=== PATIENT | female | born 1995 | race African-American/Black ===

== ENCOUNTER 2018-07-07 16:45 | Inpatient (IN) | payer MEDICAID, OTHER ==
[~2018-07-07] VITALS: Ht 180.3 cm; Wt 108.9 kg
[2018-07-07] MEDS ORDERED: ONDANSETRON HCL 4MG/2ML INJ ONE (17:32)
[2018-07-07] MEDS ORDERED: PHENYLEPHRINE HCL 10 MG/ML 1ML (IV VIAL) IV ONE (17:32)
[2018-07-07] MEDS ORDERED: EPHEDRINE SULFATE 50MG/ML VIAL ONE (17:32)
[2018-07-07] MEDS ORDERED: MORPHINE SULFATE/PF 1MG/ML 10ML AMP ONE (17:32)
[2018-07-07] MEDS ORDERED: FENTANYL CITRATE/PF 50MCG/ML 2ML VIAL ONE (17:32)
[2018-07-07] MEDS ORDERED: GLYCOPYRROLATE 0.2 MG/ML 2ML VIAL ONE (17:32)
[2018-07-07] MEDS ORDERED: OXYTOCIN 10 UNITS/ML 1ML ONE (17:32)
[2018-07-07] MEDS ORDERED: BUPIVACAINE HCL/DEXTROSE/PF 0.75% 2ML AMP INJ ONE (17:33)
[2018-07-07] MEDS ORDERED: SODIUM CHLORIDE 0.9% 10ML VIAL ONE ×2 (17:36→18:27)
[2018-07-07] MEDS ORDERED: LACTATED RINGERS 1,000 ML IV SCH (17:38)
[2018-07-07] MEDS ORDERED: DEXT 5%/LR + PITOCIN 20UNITS/L 1,000 ML IV SCH ×2 (17:38→19:20)
[2018-07-07 17:56] LABS: CLARITY URINE CLEAR (CLEAR); COLOR URINE YELLOW (YELLOW); KETONES URINE NEGATIVE (NEGATIVE); LEUKOCYTE ESTERASE URINE NEGATIVE (NEGATIVE); NITRITE URINE NEGATIVE (NEGATIVE); OCCULT BLOOD URINE NEGATIVE (NEGATIVE); PH URINE 6.5 (4.5-8.0); PROTEIN URINE NEGATIVE (NEGATIVE); SPECIFIC GRAVITY URINE 1.018 (1.005-1.030); UROBILINOGEN URINE 0.2 E.U./dL (0.2-1.0)
[2018-07-07 18:04] LABS: INR 0.9; PARTIAL THROMBOPLASTIN TIME 25.4 sec (23.4-31.0); PROTHROMBIN TIME 9.3 sec (9.1-11.1)
[2018-07-07 18:07] LABS: BASOPHILS % 0.6 % (0.0-2.0); HEMATOCRIT. 38.6 % (36.0-48.0); HEMOGLOBIN. 13.2 g/dL (12.0-16.0); MEAN CORPUSCULAR HEMOGLOBIN 34.7 pg (28.0-32.0); MEAN CORPUSCULAR VOLUME 101.9 fL (81.0-99.0); MEAN PLATELET VOLUME 8.9 fl (7.4-10.4); MONOCYTES % 8.8 % (2.0-8.0); NEUTROPHILS % 65.6 % (40.0-76.0); PLATELET 237 x1000/uL (130-400); RED BLOOD CELL COUNT 3.79 mill/uL (4.2-5.4); RED CELL DISTRIBUTION WIDTH 13.8 % (11.6-14.6)
[2018-07-07 18:22] LABS: *AMPHETAMINES SCREEN URINE NEGATIVE (NEGATIVE); *BARBITURATES SCREEN URINE NEGATIVE (NEGATIVE); *BENZODIAZEPINES SCREEN URINE NEGATIVE (NEGATIVE); *COCAINE SCREEN URINE NEGATIVE (NEGATIVE)
[2018-07-07 18:23] LABS: CANNABINOID URINE SCREEN NEGATIVE (NEGATIVE); METHADONE URINE SCREEN NEGATIVE (NEGATIVE); OPIATES URINE SCREEN NEGATIVE (NEGATIVE); PHENCYCLIDINE URINE SCREEN NEGATIVE (NEGATIVE)
[2018-07-07] MEDS ORDERED: CEFAZOLIN SODIUM 1000MG/VIAL ONE (18:27)
[2018-07-07] MEDS ORDERED: CITRIC ACID/SODIUM CITRATE SOLN 30ML UDC PO ONE (18:30)
[2018-07-07 18:36] LABS: HEPATITIS B SURFACE ANTIGEN NEGATIVE
[2018-07-07] MEDS ORDERED: KETOROLAC 60MG/2ML VIAL IM ONE (19:08)
[2018-07-07] MEDS ORDERED: MIDAZOLAM HCL 2 MG/2 ML VIAL ONE (19:10)
[2018-07-07] MEDS ORDERED: HYDROMORPHONE HCL/PF 2MG/ML CPJ IM PRN (19:30)
[2018-07-07] MEDS ORDERED: RHO(D) IMMUNE GLOBULIN 300 MCG/SYR IM PRN (19:30)
[2018-07-07] MEDS ORDERED: BISACODYL 10MG SUPP PR PRN (19:30)
[2018-07-07] MEDS ORDERED: IBUPROFEN 400MG TABLET PO PRN (19:30)
[2018-07-07] MEDS ORDERED: KETOROLAC 30MG/ML VIAL IV PRN (19:45)
[2018-07-07] MEDS ORDERED: BUTORPHANOL TARTRATE 2 MG/ML VIAL IV PRN (19:45)
[2018-07-07] MEDS ORDERED: NALOXONE HCL 0.4 MG/ML 1ML VIAL IV PRN (19:45)
[2018-07-07] MEDS ORDERED: DIPHENHYDRAMINE 50MG/ML VIAL IV PRN (19:45)
[2018-07-07 21:40] VITALS: BP 119/75
[2018-07-07 22:00] VITALS: BP 120/80
[2018-07-07 22:30] VITALS: BP 118/72
[2018-07-08] VITALS: BP 122/86
[2018-07-08 04:00] VITALS: BP 125/80
[2018-07-08 07:10] LABS: BASOPHILS % 0.7 % (0.0-2.0); EOSINOPHILS % 0.1 % (0.0-5.0); HEMATOCRIT. 34.8 % (36.0-48.0); HEMOGLOBIN. 11.7 g/dL (12.0-16.0); LYMPHOCYTES % 7.4 % (20.0-50.0); MEAN CORPUSCULAR HEMOGLOBIN 33.8 pg (28.0-32.0); MEAN CORPUSCULAR VOLUME 100.9 fL (81.0-99.0); MEAN PLATELET VOLUME 8.8 fl (7.4-10.4); MONOCYTES % 5.9 % (2.0-8.0); NEUTROPHILS % 85.9 % (40.0-76.0); PLATELET 221 x1000/uL (130-400); RED BLOOD CELL COUNT 3.45 mill/uL (4.2-5.4); RED CELL DISTRIBUTION WIDTH 13.9 % (11.6-14.6)
[2018-07-08 08:00] VITALS: BP 119/67
[2018-07-08] MEDS: IBUPROFEN 800MG TABLET PO PRN (14:32)
[2018-07-08 18:04] VITALS: BP 109/54
[2018-07-08 20:00] VITALS: BP 115/64
[2018-07-08] MEDS: ACETAMINOPHEN WITH CODEINE 300/30MG TABLET PO PRN (21:35)
[2018-07-09] MEDS: IBUPROFEN 800MG TABLET PO PRN ×3 (01:56→17:14)
[2018-07-09 04:30] VITALS: BP 125/65
[2018-07-09 08:30] VITALS: BP 123/65
[2018-07-09 16:07] VITALS: BP 124/60
[2018-07-09] MEDS ORDERED: LANOLIN OINT 0.25 GM TUBE TOP NR (17:30)
[2018-07-09] MEDS: ACETAMINOPHEN WITH CODEINE 300/30MG TABLET PO PRN (20:13)
[2018-07-09 22:00] VITALS: BP 130/74
[2018-07-10] MEDS: IBUPROFEN 800MG TABLET PO PRN ×2 (03:43→09:48)
[2018-07-10 08:00] VITALS: BP 110/66
[2018-07-10] MEDS ORDERED: LANOLIN OINT 0.25 GM TUBE TOP PRN (09:00)
== END 2018-07-10 13:45 | disposition home or self-care (01) | DRG 540 ==
LOC: OBSVTOIN 16:45 → 8 EST LDRP 16:45 → 8EST 21:40
PROVIDERS: ADMIT Obstetrics & Gynecology; ATTEND Obstetrics & Gynecology
PROC: 10D00Z1 Extraction of Products of Conception, Low, Open Approach (ICD-10-PCS; principal; 2018-07-07)
PROC: 30233N1 Transfusion of Nonautologous Red Blood Cells into Peripheral Vein, Percutaneous Approach (ICD-10-PCS; 2018-07-07)
DX: O34.211 Maternal care for low transverse scar from previous cesarean delivery (principal); Z37.0 Single live birth; Z3A.39 39 weeks gestation of pregnancy; Z82.49 Family history of ischemic heart disease and other diseases of the circulatory system; Z82.5 Family history of asthma and other chronic lower respiratory diseases; Z83.3 Family history of diabetes mellitus
CPT/HCPCS: 36415; 80305; 86592; 86703; 86762; 86850; 86900; 86920; 87340; 88307; 99281; G0378; J0690; J1200; J1885; J2250; J2274; J2370; J2405; J2590; J3010; J3490; A4315

== ENCOUNTER 2021-05-25 21:08 | Inpatient (IN) | payer MEDICAID, OTHER ==
[~2021-05-25] VITALS: Ht 180.3 cm; Wt 103.4 kg
[2021-05-25] MEDS ORDERED: LACTATED RINGERS 1,000 ML IV SCH (22:45)
[2021-05-25 23:17] LABS: CLARITY URINE CLOUDY (CLEAR); COLOR URINE YELLOW (YELLOW); KETONES URINE 4+ (NEGATIVE); LEUKOCYTE ESTERASE URINE NEGATIVE (NEGATIVE); NITRITE URINE NEGATIVE (NEGATIVE); OCCULT BLOOD URINE NEGATIVE (NEGATIVE); PH URINE 6.5 (4.5-8.0); PROTEIN URINE TRACE (NEGATIVE); SPECIFIC GRAVITY URINE 1.028 (1.005-1.030)
[2021-05-25 23:20] LABS: CHLORIDE 105 mEq/L (98-107)
[2021-05-25 23:26] LABS: HEMATOCRIT 32.3 % (36.0-48.0); HEMOGLOBIN 11.4 g/dL (12.0-16.0); MEAN CORPUSCULAR HEMOGLOBIN 34.2 pg (28.0-32.0); MEAN CORPUSCULAR VOLUME 97.4 fL (81.0-99.0); PLATELET 208 x1000/uL (130-400); RED BLOOD CELL COUNT 3.32 mill/uL (4.2-5.4); RED CELL DISTRIBUTION WIDTH 13.1 % (11.6-14.6)
[2021-05-25 23:58] LABS: HEMATOCRIT. 31.9 % (36.0-48.0); HEMOGLOBIN. 11.3 g/dL (12.0-16.0); MEAN CORPUSCULAR HEMOGLOBIN 34.7 pg (28.0-32.0); MEAN CORPUSCULAR VOLUME 98.2 fL (81.0-99.0); MEAN PLATELET VOLUME 8.5 fl (7.4-10.4); PLATELET 211 x1000/uL (130-400); RED BLOOD CELL COUNT 3.25 mill/uL (4.2-5.4); RED CELL DISTRIBUTION WIDTH 12.8 % (11.6-14.6)
[2021-05-26] MEDS ORDERED: CEFAZOLIN 2,000 MG in DEXT 5% WATER 100 ML IV NR (00:30)
[2021-05-26] MEDS ORDERED: ONDANSETRON HCL 4MG/2ML INJ ONE (00:36)
[2021-05-26] MEDS ORDERED: CEFAZOLIN SODIUM 1000MG/VIAL ONE (00:49)
[2021-05-26] MEDS: ONDANSETRON HCL 4MG/2ML INJ IV SCH ×4 (01:13→17:28)
[2021-05-26] MEDS: ACETAMINOPHEN 325MG TABLET PO PRN ×3 (01:16→17:34)
[2021-05-26] MEDS: LACTATED RINGERS 1,000 ML IV SCH ×3 (01:18→17:00)
[2021-05-26 01:55] VITALS: BP 125/73
[2021-05-26 04:00] VITALS: BP 121/74
[2021-05-26 05:33] LABS: PLATELET ESTIMATE NORMAL
[2021-05-26] MEDS: CEFTRIAXONE 1,000 MG in DEXTROSE 5% WATER 50 ML IV SCH (06:19)
[2021-05-26 08:00] VITALS: BP 109/53
[2021-05-26] MEDS ORDERED: FOLI0.4T6 MT (09:10)
[2021-05-26] MEDS ORDERED: PNV1TABL76 PO (09:10)
[2021-05-26] MEDS: DEXAMETHASONE 10 MG/ML VIAL IV SCH (09:34)
[2021-05-26 12:00] VITALS: BP 116/80
[2021-05-26 15:55] VITALS: BP 127/86
[2021-05-26 20:00] VITALS: BP 128/61
[2021-05-27] VITALS: BP 107/54
[2021-05-27] MEDS: ONDANSETRON HCL 4MG/2ML INJ IV SCH ×4 (00:30→18:27)
[2021-05-27 04:00] VITALS: BP 105/49
[2021-05-27 08:00] VITALS: BP 112/63
[2021-05-27] MEDS: DEXAMETHASONE 10 MG/ML VIAL IV SCH (09:11)
[2021-05-27] MEDS: CEFTRIAXONE 1,000 MG in DEXTROSE 5% WATER 50 ML IV SCH (09:11)
[2021-05-27] MEDS: LACTATED RINGERS 1,000 ML IV SCH (11:19)
[2021-05-27 12:00] VITALS: BP 121/67
[2021-05-27 16:00] VITALS: BP 95/54
[2021-05-27] MEDS ORDERED: DEXTROSE 50% WATER 50ML SYRINGE IV PRN (18:30)
[2021-05-27 20:00] VITALS: BP 137/78
[2021-05-27] MEDS: BLOOD SUGAR DIAGNOSTIC STRIP TEST SCH (20:08)
[2021-05-27] MEDS: INSULIN LISPRO 100 UNITS/ML SUBCUT SCH (20:08)
[2021-05-28 00:05] VITALS: BP 104/61
[2021-05-28] MEDS: ONDANSETRON HCL 4MG/2ML INJ IV SCH ×2 (00:30→05:22)
[2021-05-28 04:00] VITALS: BP 108/65
[2021-05-28] MEDS: INSULIN LISPRO 100 UNITS/ML SUBCUT SCH (05:21)
[2021-05-28] MEDS: BLOOD SUGAR DIAGNOSTIC STRIP TEST SCH (05:21)
[2021-05-28 08:00] VITALS: BP 123/63
[2021-05-28 08:02] LABS: *AMPHETAMINES SCREEN URINE NEGATIVE (NEGATIVE); *BARBITURATES SCREEN URINE NEGATIVE (NEGATIVE); *BENZODIAZEPINES SCREEN URINE NEGATIVE (NEGATIVE)
[2021-05-28 08:03] LABS: *COCAINE SCREEN URINE NEGATIVE (NEGATIVE); METHADONE URINE SCREEN NEGATIVE (NEGATIVE)
[2021-05-28 08:04] LABS: OPIATES URINE SCREEN NEGATIVE (NEGATIVE); PHENCYCLIDINE URINE SCREEN NEGATIVE (NEGATIVE)
[2021-05-28 08:11] LABS: CANNABINOID URINE SCREEN PRESUMTIVE POSITIVE (NEGATIVE)
[2021-05-28 08:12] VITALS: BP 123/63
== END 2021-05-28 09:10 | disposition home or self-care (01) | DRG 566 ==
LOC: 8 EST LDRP 21:08 → OBSVTOIN 21:08 → 7WST 05-26 02:01
PROVIDERS: ADMIT Internal Medicine; ATTEND Internal Medicine
DX: O98.512 Other viral diseases complicating pregnancy, second trimester (principal); U07.1 COVID-19; E43 Unspecified severe protein-calorie malnutrition; E88.09 Other disorders of plasma-protein metabolism, not elsewhere classified; O25.12 Malnutrition in pregnancy, second trimester; O99.012 Anemia complicating pregnancy, second trimester; O99.282 Endocrine, nutritional and metabolic diseases complicating pregnancy, second trimester; Z3A.24 24 weeks gestation of pregnancy; Z79.899 Other long term (current) drug therapy; R82.81 Pyuria
CPT/HCPCS: 36415; 71045; 76805; 80053; 80305; 81003; 82728; 82962; 83036; 83615; 84145; 85025; 85027; 86140; 87426; 93970; 96360; 96361; 99281; G0378; J0690; J0696; J1100; J2405; J7040; J7060; J7120

== ENCOUNTER 2021-09-12 13:56 | Inpatient (IN) | payer OTHER ==
[~2021-09-12] VITALS: Ht 180.3 cm; Wt 113.4 kg
[~2021-09-12 13:56] MED LIST: FOLI0.4T6 MT; PNV1TABL76 PO
[2021-09-12] MEDS ORDERED: METHYLERGONOVINE MALEATE 0.2 MG/ML IM PRN ×2 (16:30→16:45)
[2021-09-12] MEDS ORDERED: DEXT 5%/LR + PITOCIN 20UNITS/L 1,000 ML IV SCH ×2 (16:30→16:45)
[2021-09-12] MEDS ORDERED: NALOXONE HCL 0.4 MG/ML 1ML VIAL IM PRN ×2 (16:30→16:45)
[2021-09-12] MEDS ORDERED: MISOPROSTOL 100MCG TABLET RC SCH (16:45)
[2021-09-12] MEDS ORDERED: LACTATED RINGERS 1,000 ML IV SCH (16:45)
[2021-09-12] MEDS ORDERED: AMPICILLIN 2GM in NS 100ML 100 ML IV SCH (16:46)
[2021-09-12] MEDS: LACTATED RINGERS 1,000 ML IV SCH ×2 (17:17→23:04)
[2021-09-12 18:22] LABS: CLARITY URINE CLEAR (CLEAR); COLOR URINE YELLOW (YELLOW); KETONES URINE 1+ (NEGATIVE); LEUKOCYTE ESTERASE URINE NEGATIVE (NEGATIVE); NITRITE URINE NEGATIVE (NEGATIVE); OCCULT BLOOD URINE NEGATIVE (NEGATIVE); PH URINE 6.5 (4.5-8.0); PROTEIN URINE NEGATIVE (NEGATIVE); SPECIFIC GRAVITY URINE 1.024 (1.005-1.030)
[2021-09-12 18:29] LABS: BASOPHILS % 0.9 % (0.0-2.0); EOSINOPHILS % 1.5 % (0.0-5.0); HEMATOCRIT. 36.1 % (36.0-48.0); HEMOGLOBIN. 12.2 g/dL (12.0-16.0); LYMPHOCYTES % 21.5 % (20.0-50.0); MEAN CORPUSCULAR HEMOGLOBIN 32.4 pg (28.0-32.0); MEAN CORPUSCULAR VOLUME 96.3 fL (81.0-99.0); MEAN PLATELET VOLUME 8.6 fl (7.4-10.4); MONOCYTES % 7.2 % (2.0-8.0); NEUTROPHILS % 68.9 % (40.0-76.0); PLATELET 185 x1000/uL (130-400); RED BLOOD CELL COUNT 3.75 mill/uL (4.2-5.4); RED CELL DISTRIBUTION WIDTH 13.8 % (11.6-14.6)
[2021-09-12 18:31] LABS: *AMPHETAMINES SCREEN URINE NEGATIVE (NEGATIVE)
[2021-09-12 18:32] LABS: *BARBITURATES SCREEN URINE NEGATIVE (NEGATIVE); *BENZODIAZEPINES SCREEN URINE NEGATIVE (NEGATIVE); *COCAINE SCREEN URINE NEGATIVE (NEGATIVE); METHADONE URINE SCREEN NEGATIVE (NEGATIVE); OPIATES URINE SCREEN NEGATIVE (NEGATIVE); PHENCYCLIDINE URINE SCREEN NEGATIVE (NEGATIVE)
[2021-09-12 18:33] LABS: CANNABINOID URINE SCREEN NEGATIVE (NEGATIVE)
[2021-09-12 19:14] LABS: INR 0.9; PARTIAL THROMBOPLASTIN TIME 26.3 sec (23.4-31.0); PROTHROMBIN TIME 10.1 sec (9.6-11.0)
[2021-09-12 19:46] LABS: HEPATITIS B SURFACE ANTIGEN NEGATIVE
[2021-09-12] MEDS ORDERED: CITRIC ACID/SODIUM CITRATE SOLN 30ML UDC PO NR (21:30)
[2021-09-12] MEDS ORDERED: MORPHINE SULFATE/PF 1MG/ML 10ML AMP ONE (22:24)
[2021-09-12] MEDS ORDERED: ONDANSETRON HCL 4MG/2ML INJ ONE (22:24)
[2021-09-12] MEDS ORDERED: CEFAZOLIN SODIUM 1000MG/VIAL ONE (22:25)
[2021-09-12] MEDS ORDERED: SODIUM CHLORIDE 0.9% 10ML VIAL ONE (22:25)
[2021-09-12] MEDS ORDERED: OXYTOCIN 10 UNITS/ML 1ML ONE (22:25)
[2021-09-12] MEDS ORDERED: DEXAMETHASONE 4MG/ML 1ML VIAL ONE (22:25)
[2021-09-12] MEDS ORDERED: EPHEDRINE SULFATE 50MG/ML VIAL ONE (22:25)
[2021-09-12] MEDS ORDERED: PHENYLEPHRINE HCL 10 MG/ML 1ML (IV VIAL) IV ONE (22:25)
[2021-09-12] MEDS ORDERED: AMPICILLIN 2,000 MG in SODIUM CHLORIDE 0.9% 100 ML IV NR (22:30)
[2021-09-12] MEDS: AMPICILLIN 2GM in NS 100ML 100 ML IV NR ×2 (22:42→22:43)
[2021-09-13] MEDS ORDERED: DIPHENHYDRAMINE 50MG/ML VIAL IM PRN (00:45)
[2021-09-13] MEDS ORDERED: ONDANSETRON HCL 4MG/2ML INJ IM PRN (00:45)
[2021-09-13] MEDS ORDERED: NALOXONE HCL 0.4 MG/ML 1ML VIAL IV PRN (00:45)
[2021-09-13] MEDS ORDERED: BUTORPHANOL TARTRATE 2 MG/ML VIAL IV PRN (00:45)
[2021-09-13] MEDS ORDERED: KETOROLAC 30MG/ML VIAL IV PRN (00:45)
[2021-09-13] MEDS ORDERED: HYDROMORPHONE HCL/PF 2MG/ML CPJ IM PRN (01:15)
[2021-09-13] MEDS ORDERED: RHO(D) IMMUNE GLOBULIN 300 MCG/SYR IM PRN (01:15)
[2021-09-13] MEDS ORDERED: BISACODYL 10MG SUPP PR PRN (01:15)
[2021-09-13] MEDS ORDERED: IBUPROFEN 400MG TABLET PO PRN (01:15)
[2021-09-13 03:00] VITALS: BP 128/66
[2021-09-13] MEDS ORDERED: DIPHENHYDRAMINE 50MG/ML VIAL IV PRN (06:45)
[2021-09-13 08:45] VITALS: BP 114/61
[2021-09-13 08:59] LABS: HEMATOCRIT. 33.6 % (36.0-48.0); HEMOGLOBIN. 11.4 g/dL (12.0-16.0); MEAN CORPUSCULAR HEMOGLOBIN 32.6 pg (28.0-32.0); MEAN CORPUSCULAR VOLUME 95.8 fL (81.0-99.0); MEAN PLATELET VOLUME 9.1 fl (7.4-10.4); PLATELET 193 x1000/uL (130-400); RED BLOOD CELL COUNT 3.51 mill/uL (4.2-5.4); RED CELL DISTRIBUTION WIDTH 13.9 % (11.6-14.6)
[2021-09-13] MEDS: DEXT 5%/LR + PITOCIN 20UNITS/L 1,000 ML IV SCH ×2 (10:23→18:04)
[2021-09-13] MEDS: PRENATAL VIT/FE FUMARATE/FA TABLET PO SCH (10:24)
[2021-09-13 15:02] VITALS: BP 117/73
[2021-09-13] MEDS ORDERED: ONDANSETRON HCL 4MG/2ML INJ IV PRN (16:30)
[2021-09-13] MEDS: ACETAMINOPHEN 325MG TABLET PO PRN (16:40)
[2021-09-13 16:50] VITALS: BP 135/72
[2021-09-13 18:00] LABS: PLATELET ESTIMATE NORMAL
[2021-09-13 20:00] VITALS: BP 136/82
[2021-09-14 04:00] VITALS: BP 127/82
[2021-09-14] MEDS: IBUPROFEN 800MG TABLET PO PRN ×3 (05:53→20:10)
[2021-09-14 07:52] VITALS: BP 108/59
[2021-09-14] MEDS: FERROUS SULFATE 325MG TABLET PO SCH ×3 (09:53→18:05)
[2021-09-14] MEDS: PRENATAL VIT/FE FUMARATE/FA TABLET PO SCH (09:53)
[2021-09-14 16:10] VITALS: BP 126/66
[2021-09-14] MEDS: ACETAMINOPHEN 325MG TABLET PO PRN (18:09)
[2021-09-14 20:00] VITALS: BP 128/84
[2021-09-15 04:00] VITALS: BP 134/82
[2021-09-15] MEDS: IBUPROFEN 800MG TABLET PO PRN ×3 (05:41→18:35)
[2021-09-15] MEDS ORDERED: HYDROCODONE/APAP 7.5/325MG 1 TAB TABLET PO PRN (07:15)
[2021-09-15 07:30] VITALS: BP 133/80
[2021-09-15] MEDS ORDERED: NALOXONE HCL 0.4MG/ML VIAL IV PRN (07:30)
[2021-09-15] MEDS: FERROUS SULFATE 325MG TABLET PO SCH ×3 (08:09→18:10)
[2021-09-15] MEDS: PRENATAL VIT/FE FUMARATE/FA TABLET PO SCH (08:09)
[2021-09-15 16:29] VITALS: BP 133/78
[2021-09-15 17:00] VITALS: BP 138/91
[2021-09-15] MEDS: CAFFEINE 200MG TABLET PO SCH (18:10)
[2021-09-15 19:45] VITALS: BP 113/71
[2021-09-16] MEDS: CAFFEINE 200MG TABLET PO SCH ×2 (00:16→06:24)
[2021-09-16] MEDS: IBUPROFEN 800MG TABLET PO PRN ×2 (00:17→06:24)
[2021-09-16 04:00] VITALS: BP 131/84
[2021-09-16] MEDS ORDERED: IBUP-2030 PO (06:56)
[2021-09-16 07:30] VITALS: BP 130/85
[2021-09-16] MEDS: PRENATAL VIT/FE FUMARATE/FA TABLET PO SCH (08:24)
[2021-09-16] MEDS: FERROUS SULFATE 325MG TABLET PO SCH (08:24)
[2021-09-16] MEDS ORDERED: SUMATRIPTAN SUCCINATE 25MG TABLET PO NR (12:00)
== END 2021-09-16 13:45 | disposition home or self-care (01) | DRG 540 ==
LOC: OBSVTOIN 13:56 → 8 EST LDRP 13:56 → 8EST 09-13 03:00
PROVIDERS: ADMIT Obstetrics & Gynecology; ATTEND Obstetrics & Gynecology
PROC: 10D00Z1 Extraction of Products of Conception, Low, Open Approach (ICD-10-PCS; principal; 2021-09-13)
DX: O34.211 Maternal care for low transverse scar from previous cesarean delivery (principal); O69.81X0 Labor and delivery complicated by cord around neck, without compression, not applicable or unspecified; Z20.822 Contact with and (suspected) exposure to COVID-19; Z3A.40 40 weeks gestation of pregnancy; Z37.0 Single live birth; Z83.3 Family history of diabetes mellitus; Z80.3 Family history of malignant neoplasm of breast
CPT/HCPCS: 36415; 76805; 76818; 80305; 81003; 85025; 86592; 86703; 86762; 86850; 86900; 86920; 87340; 87426; 88307; 99281; G0378; J0290; J0690; J1100; J1200; J2274; J2370; J2405; J2590; J3490; J7050; J7120